=== PATIENT | male | born 1960 | race Caucasian/White ===

== ENCOUNTER 2016-05-27 09:51 | Outpatient (CLI) | payer OTHER ==
[2014-02-23 20:38] VITALS: BP 112/66
[2016-05-27 10:44] LABS: eGFR (African) > 60; eGFR (Non-African) > 60
== END 2016-05-27 09:52 ==
LOC: LAB 09:51
PROVIDERS: ATTEND Family Medicine
DX: Z00.00 Encounter for general adult medical examination without abnormal findings (principal); M62.59 Muscle wasting and atrophy, not elsewhere classified, multiple sites
CPT/HCPCS: 36415; 80053; 80061; 83036; 84402

== ENCOUNTER 2016-10-02 07:04 | Outpatient (CLI) | payer OTHER ==
[2014-02-23 20:38] VITALS: BP 112/66
[2016-10-02 08:02] LABS: eGFR (African) > 60; eGFR (Non-African) > 60
== END 2016-10-02 07:05 ==
LOC: LAB 07:04
PROVIDERS: ATTEND Family Medicine
DX: E11.9 Type 2 diabetes mellitus without complications (principal)
CPT/HCPCS: 36415; 80053; 80061; 83036

== ENCOUNTER 2017-08-18 15:04 | Outpatient (CLI) | payer OTHER ==
[2014-02-23 20:38] VITALS: BP 112/66
== END 2017-08-18 15:05 ==
LOC: LAB 15:04
PROVIDERS: ATTEND Family Medicine
DX: E11.9 Type 2 diabetes mellitus without complications (principal)
CPT/HCPCS: 36415; 83036

== ENCOUNTER 2018-01-25 06:54 | Outpatient (CLI) | payer OTHER ==
[2014-02-23 20:38] VITALS: BP 112/66
[2018-01-25 07:42] LABS: eGFR (Non-African) > 60
== END 2018-01-25 06:55 ==
LOC: LAB 06:54
PROVIDERS: ATTEND Family Medicine
DX: Z00.00 Encounter for general adult medical examination without abnormal findings (principal); E11.9 Type 2 diabetes mellitus without complications
CPT/HCPCS: 36415; 80053; 80061; 83036

== ENCOUNTER 2018-05-18 14:45 | Outpatient (CLI) | payer OTHER ==
[2014-02-23 20:38] VITALS: BP 112/66
--- NOTE | 2018-05-19 00:28 | Diagnostic Imaging Report ---
AMELIA DUKES [facility] [address] [facility] [address] [id number] Report Submission Date: May 18, 2018 4:58:20 PM [facility] [place] Patient Study Name: ADDIE CORNEJO Date: May 18, 2018 3:12:39 PM [facility] [place] Modality Type: DX Gender: M Description: UPPER EXTREMITY : 56 Institution: [facility] Physician: AMELIA DUKES Examination: Plain film right extremity. History: RT 1ST DIGIT, PAIN IN RT THUMB AFTER MOVING FURNITURE 2-3 DAYS AGO, PT STATES NO KNOWN INJURY (Hx) Comparison exams: None available Findings: 3 views of the right 1st digit demonstrates normal cortical margins. No fracture. No dislocation. No soft tissue abnormality. Impression: No acute appearing osseous abnormality Electronically signed on May 18, 2018 4:58:20 PM [facility] [place] by: Sukhi SERNA
== END 2018-05-18 14:47 ==
LOC: RAD 14:45
PROVIDERS: ATTEND Family Medicine
DX: M79.644 Pain in right finger(s) (principal)
CPT/HCPCS: 73140